=== PATIENT | male | born 1945 | race Two or more races ===

== ENCOUNTER 2021-01-21 11:09 | Emergency (ER) | payer OTHER ==
[~2021-01-21] VITALS: Ht 152.4 cm; Wt 99.8 kg
[~2021-01-21 11:09] MED LIST: METFORMIN HCL500 MG PO; SIMVASTATIN10 MG PO
[2021-01-21] MEDS ORDERED: TAMS0.4C PO (14:29)
== END 2021-01-21 14:52 | disposition home or self-care (01) ==
LOC: ER 11:09
DX: R30.0 Dysuria (principal)

== ENCOUNTER → 2022-10-05 | Emergency (ER) | payer OTHER ==
[~2022-10-05] VITALS: Ht 170.2 cm; Wt 101.6 kg
[~2022-10-05] MED LIST changes: +TAMS0.4C PO
== END | disposition left against medical advice (07) ==
LOC: ER 12:57
DX: Z53.21 Procedure and treatment not carried out due to patient leaving prior to being seen by health care provider (principal)